=== PATIENT | male | born 1980 | race African-American/Black ===

== ENCOUNTER 2018-06-21 10:06 | Emergency (ER) | payer MEDICARE ==
[2018-06-21] MEDS ORDERED: SODIUM CHLORIDE 0.9% 1,000 ML IV STA (11:02)
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
[2018-06-21 11:51] LABS: Basophils % (A) 0 %; Eosinophils # (A) 0.3 k/uL (0-0.7); Eosinophils % (A) 3 %; HCT 40.3 % (39.0-53.0); HGB 12.4 gm/dL (13.0-17.5); Hypochromasia Moderate; Lymphocytes # (A) 1.4 k/uL (1.0-4.8); Lymphocytes % (A) 19 %; MCH 24.7 pg (25.0-35.0); MCHC 30.7 g/dL (31.0-37.0); MCV 80.6 fL (80.0-100.0); Mean Platelet Volume 7.1; Monocytes # (A) 0.4 k/uL (0-1.0); Monocytes % (A) 5 %; Neutrophils # (A) 5.1 k/uL (1.3-7.7); Neutrophils % (A) 69 %; Platelet Count 261 k/uL (150-450); RBC 5.01 m/uL (4.30-5.90); RDW 15.1 % (11.5-15.5); WBC 7.4 k/uL (3.8-10.6)
[2018-06-21 12:03] LABS: Albumin 3.9 g/dL (3.5-5.0); Calcium 8.9 mg/dL (8.4-10.2); Magnesium 2.3 mg/dL (1.6-2.3); Potassium 3.5 mmol/L (3.5-5.1); Total Bilirubin 0.4 mg/dL (0.2-1.3); Total Protein 7.1 g/dL (6.3-8.2)
[2018-06-21 12:10] LABS: Partial Thromboplastin Time 23.6 sec (22.0-30.0); Prothrombin Time 10.1 sec (9.0-12.0)
[2018-06-21 12:12] LABS: Creatine Kinase 536 U/L (55-170)
--- NOTE | 2018-06-21 12:19 | XR ---
EXAMINATION TYPE: XR chest 2V DATE OF EXAM: 06/21/2018 HISTORY: Chest Pain. REFERENCE: Previous study dated 07/21/2011. FINDINGS: The heart is enlarged. There is vascular congestion and mild edema. There is some fluid in the minor fissure on the right. Pleural spaces are clear. IMPRESSION: PLEASE CORRELATE FOR MILD CONGESTIVE HEART FAILURE.
--- NOTE | 2018-06-21 12:19 | XR ---
EXAMINATION TYPE: XR tibia fibula LT , 4 VIEWS DATE OF EXAM ORDERED: 06/21/2018 HISTORY: Pain. COMPARISON: None. FINDINGS: No fracture, dislocation or other acute osseous abnormality is seen. IMPRESSION: NO ACUTE OSSEOUS LESION.
[2018-06-21 12:26] LABS: Troponin I <0.012 ng/mL (0.000-0.034)
[2018-06-21] MEDS ORDERED: hydrALAZINE HCL 20 MG/ML 1 ML VIAL IVP STA (13:39)
[2018-06-21] MEDS ORDERED: IBUPROFEN 600 MG STARTER PACK 4 TAB BTL PO STA (13:55)
[2018-06-21 14:01] VITALS: RESP 18
[2018-06-21 14:33] VITALS: BP 170/89; PULSE 74; TEMP 98.7
== END 2018-06-21 14:32 | disposition home or self-care (01) ==
LOC: EC 10:06
DX: I11.0 Hypertensive heart disease with heart failure (principal); I50.9 Heart failure, unspecified; Z76.0 Encounter for issue of repeat prescription; M79.604 Pain in right leg; M79.605 Pain in left leg; M79.89 Other specified soft tissue disorders; F17.200 Nicotine dependence, unspecified, uncomplicated; Z88.8 Allergy status to other drugs, medicaments and biological substances
CPT/HCPCS: 36415; 93005; 83880; 80053; 82550; 82553; 83735; 84484; 85025; 85610; 85730; 73590; 71046; 99284; 96374; 96361 ×3; J0360

== ENCOUNTER 2018-07-03 10:04 | Emergency (ER) | payer MEDICARE, OTHER ==
[2018-07-03 10:09] VITALS: BP 160/101; PULSE 89; RESP 18; TEMP 98.2
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
== END 2018-07-03 11:44 | disposition left against medical advice (07) ==
LOC: EC 10:04
DX: M79.605 Pain in left leg (principal); M79.89 Other specified soft tissue disorders; I11.0 Hypertensive heart disease with heart failure; I50.9 Heart failure, unspecified; F17.200 Nicotine dependence, unspecified, uncomplicated; Z88.8 Allergy status to other drugs, medicaments and biological substances; Z53.8 Procedure and treatment not carried out for other reasons
CPT/HCPCS: 99283

== ENCOUNTER 2018-07-10 18:33 | Emergency (ER) | payer MEDICARE, OTHER ==
[2018-07-10 19:31] VITALS: RESP 18
[2018-07-10] MEDS ORDERED: KETOROLAC 30 MG/ML 1 ML VIAL IM STA (19:41)
--- NOTE | 2018-07-10 19:45 | ED ---
Extremity Problem HPI - General Chief complaint: Extremity Problem,Nontraumatic Stated complaint: lt leg pain Time Seen by Provider: 07/10/18 19:34 Source: patient Mode of arrival: wheelchair Limitations: no limitations - History of Present Illness Initial comments: 38-year-old male patient presents to the emergency department today for complaints of left lower leg pain and swelling. Patient states he has had this pain intermittently over the last 3 months. Patient states recently the pain has been getting much worse. Patient states the pain is mainly located in his calf. States that he feels a lot of pressure in the leg like it is going to "burst". Patient states he did take Advil earlier today but it did not help. He denies any fevers or chills with this. Denies any chest pain, shortness of breath, or palpitations. Denies any history of blood clots. Denies any known injury to the leg. He is not currently take any anticoagulant medications. Patient does have an extensive cardiac history including CHF and hypertension. Patient denies any recent rash, abdominal pain, nausea, vomiting, diarrhea, constipation, back pain, numbness, tingling, dizziness, weakness, hematuria, dysuria, urinary urgency, urinary frequency, visual changes, or any other complaints. - Related Data Previous Rx's Medication Instructions Recorded Chlorthalidone [Hygroton] 25 mg PO DAILY #10 tablet 06/21/18 Ibuprofen 800 mg PO TID #20 tablet 06/21/18 Labetalol [Trandate] 300 mg PO BID #10 tablet 06/21/18 Potassium Chloride ER [K-Dur 20] 20 meq PO BID #20 tab 06/21/18 hydrALAZINE HCL [Apresoline] 100 mg PO DAILY #20 tab 06/21/18 Ibuprofen [Motrin] 600 mg PO Q8HR PRN #30 tab 07/10/18 Allergies Allergy/AdvReac Type Severity Reaction Status Date / Time amlodipine [From [facility]] Allergy Anaphylaxis Verified 07/10/18 19:27 lisinopril Allergy Anaphylaxis Verified 07/10/18 19:27 Review of Systems ROS Statement: Those systems with pertinent positive or pertinent negative responses have been documented in the HPI. ROS Other: All systems not noted in ROS Statement are negative. Past Medical History Past Medical History: Heart Failure, Hypertension History of Any Multi-Drug Resistant Organisms: None Reported Past Surgical History: Hernia Repair Past Psychological History: Bipolar Smoking Status: Former smoker Past Alcohol Use History: Occasional Past Drug Use History: Marijuana General Exam Limitations: no limitations General appearance: alert, in no apparent distress, other (This is a well- developed, well-nourished adult male patient in no acute distress. Vital signs upon presentation are temperature 98.8F, pulse 88, respirations 18, blood pressure 185/107, pulse ox 100% on room air.) Eye exam: Present: normal appearance, PERRL, EOMI. Absent: scleral icterus, conjunctival injection, periorbital swelling ENT exam: Present: normal exam, normal oropharynx, mucous membranes moist Respiratory exam: Present: normal lung sounds bilaterally. Absent: respiratory distress, wheezes, rales, rhonchi, stridor Cardiovascular Exam: Present: regular rate, normal rhythm, normal heart sounds. Absent: systolic murmur, diastolic murmur, rubs, gallop, clicks Extremities exam: Present: full ROM, normal capillary refill, calf tenderness ( Left), other (Patient has moderate nonpitting edema to the left lower leg and foot. Pedal pulse and posttibial pulses are 2+ and equal bilaterally. Remainder of skin is pink, warm, and dry. Cap refills less than 3 seconds.). Absent: normal inspection, tenderness, pedal edema, joint swelling Course Vital Signs 07/10/18 19:27 Temperature 98.8 F Pulse Rate 88 Respiratory 18 Rate Blood Pressure 185/107 O2 Sat by Pulse 100 Oximetry Medical Decision Making - Medical Decision Making 38-year-old male patient presented to the emergency department today for evaluation of left calf pain and left lower leg swelling. Physical examination did reveal firm left calf. Patient has full range of motion to both the knee and the foot. Skin was warm and dry. Venous Doppler duplex was negative for any evidence of DVT. X-ray was negative for any acute osseous abnormalities. Did perform a soft tissue ultrasound of the left calf which did show a intramuscular hematoma measuring 8 x 7 cm. I did discuss findings and results with the patient. My attending Dr. Houston was in to evaluate the patient. Patient will be given ibuprofen for pain control and instructed to use Shilo wrap for comfort and support. Instructed to keep the leg elevated. Instructed to follow-up with his primary care physician for monitoring and a recheck in 1-2 days. We did discuss risk of compartment syndrome so if his pain becomes worse or has any changes he is to return immediately. Return parameters discussed in detail. He verbalizes understanding and agreed with this plan. - Radiology Data Radiology results: report reviewed, image reviewed Venous Doppler duplex of the left lower trauma he was obtained. Report was reviewed in its entirety. Impression by Dr. Renteria shows no evidence of deep venous thrombosis. Small popliteal cyst. 4 views of the left tib-fib are obtained. This no fracture or dislocation. There is subcutaneous edema around the lower leg. Ankle joint and knee joint appear intact. Impression by Dr. Renteria shows subcutaneous edema. No fracture seen. Vascular limited ultrasound of the left lower extremity was obtained. Hypoechoic area in the medial calf measuring 8.1 x 3.5 x 7.[address] Renteria shows a large complex elongated mass in the cath is consistent with intramuscular hematoma. Disposition Clinical Impression: Intramuscular hematoma Disposition: HOME SELF-CARE Condition: Good Instructions: Hematoma (ED) Additional Instructions: Keep Shilo wrap in place for compression and support. Take ibuprofen for pain control. Keep leg elevated as much as possible. Return here immediately for any new, worsening, or concerning symptoms. Prescriptions: Ibuprofen [Motrin] 600 mg PO Q8HR PRN #30 tab PRN Reason: Pain Is patient prescribed a controlled substance at d/c from ED?: No Referrals: [facility] [Primary Care Provider] - 1-2 days Time of Disposition: 22:15
--- NOTE | 2018-07-10 20:22 | US ---
EXAMINATION TYPE: US venous doppler duplex LE LT DATE OF EXAM: 07/10/2018 8:09 PM COMPARISON: NONE CLINICAL HISTORY: Pain. Left leg pain SIDE PERFORMED: Left TECHNIQUE: The lower extremity deep venous system is examined utilizing real time linear array sonog meche with graded compression, doppler sonography and color-flow sonography. VESSELS IMAGED: External Iliac Vein (EIV) Common Femoral Vein Deep Femoral Vein Greater Saphenous Vein * Femoral Vein Popliteal Vein Small Saphenous Vein Left Leg: Negative for DVT Fluid pocket seen posterior left knee measuring 2.3 x 1.6 x 1.0 cm. IMPRESSION: No evidence of deep venous thrombosis. Small popliteal cyst.
--- NOTE | 2018-07-10 21:50 | US ---
EXAMINATION TYPE: US extremity nonvasculr ltd LT DATE OF EXAM: 07/10/2018 COMPARISON: NONE CLINICAL HISTORY: Pain. Lt calf pain and hardness. Hypoechoic area medial calf measuring 8.1 x 3.5 x 7.1 cm IMPRESSION: Large complex elongated mass in the calf is consistent with intramuscular hematoma.
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
[2018-07-10 22:48] VITALS: BP 175/98; PULSE 79; TEMP 98.9
== END 2018-07-10 22:48 | disposition home or self-care (01) ==
LOC: EC 18:33
DX: M79.81 Nontraumatic hematoma of soft tissue (principal); M79.662 Pain in left lower leg; Z87.891 Personal history of nicotine dependence; Z88.8 Allergy status to other drugs, medicaments and biological substances
CPT/HCPCS: 99284 ×2; 96372 ×2; 73590; 93971; 76882; J1885

== ENCOUNTER 2018-07-17 03:25 | Emergency (ER) | payer MEDICARE, OTHER ==
[2018-07-17 03:32] VITALS: RESP 18
--- NOTE | 2018-07-17 04:08 | ED ---
General Adult HPI - General Chief complaint: Extremity Problem,Nontraumatic Stated complaint: Swollen leg and foot Time Seen by Provider: 07/17/18 03:36 Source: patient Mode of arrival: ambulatory Limitations: no limitations - History of Present Illness Initial comments: Enrike is a 38-year-old male who presents to the emergency department today for reevaluation of left lower extremity swelling. The patient has been evaluated multiple times in our emergency department and diagnosed with intramuscular hematoma, patient returns today for reevaluation of worsening swelling. Patient reports that he does walk 3-5 miles every day, he has taken 2 pills of Motrin since his previous evaluation, he has not been elevating the foot. He was told by his sister who is a physical therapist that he would improve with walking so he has been trying to walk more than usual. Patient reports that he has noticed that his left shoe seems tight and that his foot is getting swollen so he came back to the ER for evaluation. She denies any other injuries or complaints including fevers, chills, nausea, vomiting, chest tightness or palpitations or any shortness of breath. Patient previously had a workup which was negative for acute DVT Worsening swelling today. - Related Data Previous Rx's Medication Instructions Recorded Chlorthalidone [Hygroton] 25 mg PO DAILY #10 tablet 06/21/18 Ibuprofen 800 mg PO TID #20 tablet 06/21/18 Labetalol [Trandate] 300 mg PO BID #10 tablet 06/21/18 Potassium Chloride ER [K-Dur 20] 20 meq PO BID #20 tab 06/21/18 hydrALAZINE HCL [Apresoline] 100 mg PO DAILY #20 tab 06/21/18 Ibuprofen [Motrin] 600 mg PO Q8HR PRN #30 tab 07/10/18 Allergies Allergy/AdvReac Type Severity Reaction Status Date / Time amlodipine [From [facility]] Allergy Anaphylaxis Verified 07/10/18 19:27 lisinopril Allergy Anaphylaxis Verified 07/10/18 19:27 Review of Systems ROS Statement: Those systems with pertinent positive or pertinent negative responses have been documented in the HPI. ROS Other: All systems not noted in ROS Statement are negative. Past Medical History Past Medical History: Heart Failure, Hypertension History of Any Multi-Drug Resistant Organisms: None Reported Past Surgical History: Hernia Repair Past Psychological History: Bipolar Smoking Status: Former smoker Past Alcohol Use History: Occasional Past Drug Use History: Marijuana General Exam Limitations: no limitations General appearance: alert, in no apparent distress, other (Patient was sleeping comfortably in ER when initially evaluated) Head exam: Present: atraumatic, normocephalic Eye exam: Present: normal appearance, PERRL ENT exam: Present: normal exam Neck exam: Present: normal inspection Respiratory exam: Present: normal lung sounds bilaterally. Absent: respiratory distress Cardiovascular Exam: Present: regular rate, normal rhythm GI/Abdominal exam: Present: soft, other (Obese). Absent: distended Rectal exam: Present: deferred Extremities exam: Present: pedal edema (2+ pitting edema) Back exam: Present: normal inspection Neurological exam: Present: alert, oriented X3 Psychiatric exam: Present: other (child like affect) Skin exam: Present: warm, dry, normal color. Absent: rash Course Vital Signs 07/17/18 07/17/18 03:28 05:38 Temperature 97.4 F L 98.7 F Pulse Rate 84 79 Respiratory 18 18 Rate Blood Pressure 159/88 138/73 O2 Sat by Pulse 100 96 Oximetry Medical Decision Making - Medical Decision Making The patient was seen and evaluated, history was obtained from the patient and review of medical record Edition I did evaluate this patient during his previous ER visit, I did note that today he does have increasing edema Review of previous labs reveal that he did have a mildly elevated CPK Today we'll repeat labs and imaging Repeat CPK is decreasing Repeat venous Doppler again reveals no acute DVT Soft tissue ultrasound does reveal worsening intra-muscular hematoma Symptomatic treatment including rest, ice, compression and elevation were discussed with the patient. Advised the patient to wrap the leg in an Shilo, to decrease his ambulation every day and to follow-up with a primary care physician. Patient will be referred to primary care physician for reevaluation. All questions pertaining to care were answered best my ability the patient was discharged home in stable condition. - Lab Data Result diagrams: 07/17/18 04:30 07/17/18 04:30 Lab Results 07/17/18 07/17/18 07/17/18 Range/Units 04:30 04:30 04:30 WBC 7.3 (3.8-10.6) k/uL RBC 4.41 (4.30-5.90) m/uL Hgb 10.8 L (13.0-17.5) gm/dL Hct 34.9 L (39.0-53.0) % MCV 79.1 L (80.0-100.0) fL MCH 24.4 L (25.0-35.0) pg MCHC 30.8 L (31.0-37.0) g/dL RDW 15.0 (11.5-15.5) % Plt Count 286 (150-450) k/uL Neutrophils % 73 % Lymphocytes % 16 % Monocytes % 5 % Eosinophils % 5 % Basophils % 0 % Neutrophils # 5.3 (1.3-7.7) k/uL Lymphocytes # 1.2 (1.0-4.8) k/uL Monocytes # 0.4 (0-1.0) k/uL Eosinophils # 0.4 (0-0.7) k/uL Basophils # 0.0 (0-0.2) k/uL Hypochromasia Slight Sodium 139 (137-145) mmol/L Potassium 3.6 (3.5-5.1) mmol/L Chloride 103 (98-107) mmol/L Carbon Dioxide 31 H (22-30) mmol/L Anion Gap 5 mmol/L BUN 20 (9-20) mg/dL Creatinine 1.40 H (0.66-1.25) mg/dL Est GFR (CKD-EPI)AfAm 73 (>60 ml/min/1.73 sqM) Est GFR (CKD-EPI)NonAf 64 (>60 ml/min/1.73 sqM) Glucose 95 (74-99) mg/dL Plasma Lactic Acid Darryl 0.6 L (0.7-2.0) mmol/L Calcium 8.8 (8.4-10.2) mg/dL Creatine Kinase 232 H (55-170) U/L Disposition Clinical Impression: Intramuscular hematoma, Lower extremity edema Disposition: HOME SELF-CARE Condition: Good Instructions: Hematoma (ED) Additional Instructions: Apply ice to her leg for 15 minutes and then remove for 15 minutes, keep the leg elevated as often as possible to decrease swelling Is patient prescribed a controlled substance at d/c from ED?: No Referrals: None,Stated [Primary Care Provider] - 1-2 days Eileen Montoya MD [REFERRING] - 1-2 days Time of Disposition: 05:25
[2018-07-17 04:55] LABS: Basophils % (A) 0 %; Eosinophils # (A) 0.4 k/uL (0-0.7); Eosinophils % (A) 5 %; HCT 34.9 % (39.0-53.0); HGB 10.8 gm/dL (13.0-17.5); Hypochromasia Slight; Lymphocytes # (A) 1.2 k/uL (1.0-4.8); Lymphocytes % (A) 16 %; MCH 24.4 pg (25.0-35.0); MCHC 30.8 g/dL (31.0-37.0); MCV 79.1 fL (80.0-100.0); Mean Platelet Volume 7.6; Monocytes # (A) 0.4 k/uL (0-1.0); Monocytes % (A) 5 %; Neutrophils # (A) 5.3 k/uL (1.3-7.7); Neutrophils % (A) 73 %; Platelet Count 286 k/uL (150-450); RBC 4.41 m/uL (4.30-5.90); WBC 7.3 k/uL (3.8-10.6)
[2018-07-17 05:11] LABS: Calcium 8.8 mg/dL (8.4-10.2); Potassium 3.6 mmol/L (3.5-5.1)
--- NOTE | 2018-07-17 05:15 | US ---
EXAMINATION TYPE: US venous doppler duplex LE LT DATE OF EXAM: 07/17/2018 4:39 AM COMPARISON: NONE CLINICAL HISTORY: Pain, edema. Pain and swelling left leg SIDE PERFORMED: TECHNIQUE: The lower extremity deep venous system is examined utilizing real time linear array sonog meche with graded compression, doppler sonography and color-flow sonography. VESSELS IMAGED: External Iliac Vein (EIV) Common Femoral Vein Deep Femoral Vein Greater Saphenous Vein * Femoral Vein Popliteal Vein Small Saphenous Vein * Proximal Calf Veins (* superficial vessels) Left Leg: Negative for DVT No evidence of DVT left leg IMPRESSION: Normal left leg duplex venous sonogram.
--- NOTE | 2018-07-17 05:17 | US ---
EXAMINATION TYPE: US extremity nonvasc complt LT DATE OF EXAM: 07/17/2018 COMPARISON: 07/10/2018 CLINICAL HISTORY: Pain, edema, hematoma. Pain lump in left calf compare to previous exam on 8. Hypoechoic area no blood flow measuring 8.2 x 2.8 x 6.7 cm. Stable in size compared to previous exam . IMPRESSION: Complex oval-shaped mass in the left calf consistent with intramuscular hematoma. This m easures slightly larger than old exam of 07/10/2018.
[2018-07-17 05:39] VITALS: BP 138/73; PULSE 79; TEMP 98.7
== END 2018-07-17 05:39 | disposition home or self-care (01) ==
LOC: EC 03:25
DX: M79.81 Nontraumatic hematoma of soft tissue (principal); R60.0 Localized edema; R79.89 Other specified abnormal findings of blood chemistry; Z87.891 Personal history of nicotine dependence; Z88.8 Allergy status to other drugs, medicaments and biological substances
CPT/HCPCS: 36415; 80048; 82550; 83605; 85025; 99284

== ENCOUNTER 2018-07-20 15:40 | Emergency (ER) | payer MEDICARE, OTHER ==
[2018-07-20 16:03] VITALS: BP 167/92; PULSE 90; RESP 18; TEMP 98.3
--- NOTE | 2018-07-20 16:28 | ED ---
Recheck HPI - General Chief Complaint: Recheck/Abnormal Lab/Rx Stated Complaint: Med refill Time Seen by Provider: 07/20/18 15:49 Source: patient, RN notes reviewed Mode of arrival: ambulatory Limitations: no limitations - History of Present Illness Initial Comments: This is a 38yo male with PMH of CHF, hypertensions and "psychiatric issues", who presents today for CC of "I need my blood pressure medications refilled". Pt states that he has been out of his blood pressure medications of hydralazine 100mg once daily for the past week. Pt was recently seen here for LE edema and hypertension medication refill. Patient denies any symptoms today including recent fever, chills, night sweats, shortness of breath, chest pain, back pain, abdominal pain, nausea or vomiting, numbness or tingling, dysuria or hematuria, constipation or diarrhea, headaches or visual changes, or any other complaints. He does state the he has the same left LE edema that he was seen for on the , however he states it has not changed and that he has an appointment with his doctor on Saturday. Upon arrival pt BP elevated at 167/92. - Related Data Previous Rx's Medication Instructions Recorded Chlorthalidone [Hygroton] 25 mg PO DAILY #10 tablet 06/21/18 Ibuprofen 800 mg PO TID #20 tablet 06/21/18 Labetalol [Trandate] 300 mg PO BID #10 tablet 06/21/18 Potassium Chloride ER [K-Dur 20] 20 meq PO BID #20 tab 06/21/18 hydrALAZINE HCL [Apresoline] 100 mg PO DAILY #20 tab 06/21/18 Ibuprofen [Motrin] 600 mg PO Q8HR PRN #30 tab 07/10/18 hydrALAZINE HCL [Apresoline] 100 mg PO DAILY 7 Days #7 tab 07/20/18 Allergies Allergy/AdvReac Type Severity Reaction Status Date / Time amlodipine [From [facility]] Allergy Anaphylaxis Verified 07/20/18 15:56 lisinopril Allergy Anaphylaxis Verified 07/20/18 15:56 Review of Systems ROS Statement: Those systems with pertinent positive or pertinent negative responses have been documented in the HPI. ROS Other: All systems not noted in ROS Statement are negative. Constitutional: Denies: fever, chills Eyes: Denies: vision change ENT: Denies: hearing loss Respiratory: Denies: cough, dyspnea, wheezes, hemoptysis, stridor Cardiovascular: Reports: edema (left lower extremity edema). Denies: chest pain , palpitations Gastrointestinal: Denies: abdominal pain, nausea, vomiting, diarrhea, constipation Genitourinary: Denies: urgency, dysuria Musculoskeletal: Denies: back pain, joint swelling, arthralgia Skin: Denies: rash, lesions Neurological: Denies: headache, weakness, numbness, paresthesias, confusion, abnormal gait Past Medical History Past Medical History: Heart Failure, Hypertension History of Any Multi-Drug Resistant Organisms: None Reported Past Surgical History: Hernia Repair Past Psychological History: Bipolar Smoking Status: Former smoker Past Alcohol Use History: Occasional Past Drug Use History: Marijuana General Exam - General Exam Comments Initial Comments: General: The patient is awake and alert, in no distress, and does not appear acutely ill. Eye: +3 mm pupils are equal, round and reactive to light, extra-ocular movements are intact. No nystagmus. There is normal conjunctiva bilaterally. No signs of icterus. Ears, nose, mouth and throat: There are moist mucous membranes and no oral lesions. Neck: The neck is supple, there is no tenderness or JVD. Cardiovascular: There is a regular rate and rhythm. No murmur, rub or gallop is appreciated. Respiratory: Lungs are clear to auscultation, respirations are non-labored, breath sounds are equal. No wheezes, stridor, rales, or rhonchi. Musculoskeletal: Normal ROM LE b/l, no tenderness. Strength 5/5. Sensation intact. DP pulses equal bilaterally 2+. Neurological: A&O x 3. CN II-XII intact, There are no obvious motor or sensory deficits. Coordination appears grossly intact. Speech is normal. Skin: Skin is warm and dry and no rashes or lesions are noted. LE edema of the left leg, with thickening of the skin. No pain to palpation of the posterior calf. (-) Homans. Psychiatric: Cooperative, appropriate mood & affect, normal judgment. Limitations: no limitations Course Vital Signs 07/20/18 15:53 Temperature 98.3 F Pulse Rate 90 Respiratory 18 Rate Blood Pressure 167/92 O2 Sat by Pulse 96 Oximetry Medical Decision Making - Medical Decision Making Case discussed with Dr. Geiger, at this time we feel comfortable filling prescription of hydralazine with PCP f/u for further BP management. In addition pt was given cardiology referral for hx of CHF. Pt denies any shortness of breath, dyspnea on exertion, orthopnea stating that he breathes great and walked 5 miles a day without issues. Pt cardiovascular/pulmonary examination unremarkable, no JVD. Pt left LE edema appear to a stasis dermatitis, pt had a ( -) duplex ultrasounds for DVT 3 days prior and was told to f/u with PCP. Pt was requesting referral for new PCP- given referral for Dr. Pradhan. Pt denies any symptoms of EOD, at this time we feel pt is stable for discharge. Disposition Clinical Impression: Medication refill Disposition: HOME SELF-CARE Condition: Good Instructions: Hypertension (ED) Additional Instructions: Please use medication as discussed. Please follow-up with family doctor in the next 2 days for further management of hypertension. Please see network systems operator for CHF evaluation. Please return to emergency room if the symptoms increase or worsen or for any other concerns, as discussed. Prescriptions: hydrALAZINE HCL [Apresoline] 100 mg PO DAILY 7 Days #7 tab Is patient prescribed a controlled substance at d/c from ED?: No Referrals: None,Stated [Primary Care Provider] - 1-2 days Bel Pradhan MD [STAFF PHYSICIAN] - 1-2 days Bipin Cartwright MD [STAFF PHYSICIAN] - 1-2 days Time of Disposition: 16:28
== END 2018-07-20 16:38 | disposition home or self-care (01) ==
LOC: EC 15:40
DX: Z76.0 Encounter for issue of repeat prescription (principal); R60.0 Localized edema; I11.0 Hypertensive heart disease with heart failure; I50.9 Heart failure, unspecified; Z87.891 Personal history of nicotine dependence; Z88.8 Allergy status to other drugs, medicaments and biological substances
CPT/HCPCS: 99281

== ENCOUNTER 2018-07-27 19:36 | Emergency (ER) | payer MEDICARE, OTHER ==
[2018-07-27 19:46] VITALS: BP 189/118; PULSE 98; RESP 16; TEMP 98.9
[2018-07-27] MEDS ORDERED: KETOROLAC 60 MG/2 ML VIAL IM STA (19:55)
--- NOTE | 2018-07-27 19:58 | ED ---
General Adult HPI - General Chief complaint: Extremity Problem,Nontraumatic Stated complaint: Needs Rx renewal Time Seen by Provider: 07/27/18 19:46 Source: patient, RN notes reviewed Mode of arrival: ambulatory Limitations: no limitations - History of Present Illness Initial comments: 38-year-old male presents emergency Department chief complaint of medication refill. Patient states that he needs a refill of his ibuprofen. Patient states that he takes ibuprofen for his leg pain which is chronic in nature has had 6 ER visits for this pain and extensive ultrasound lab work. Patient has a hematoma but has had no evidence of DVT. Patient states that he does not have any money for ibuprofen [id number] he states his insurance covers this. Patient has an appointment with his PCP and Saturday. Patient denies chest pain , headache, dizziness, shortness breath, fever, chills. Patient states that his leg swelling is improving. - Related Data Previous Rx's Medication Instructions Recorded Chlorthalidone [Hygroton] 25 mg PO DAILY #10 tablet 06/21/18 Ibuprofen 800 mg PO TID #20 tablet 06/21/18 Labetalol [Trandate] 300 mg PO BID #10 tablet 06/21/18 Potassium Chloride ER [K-Dur 20] 20 meq PO BID #20 tab 06/21/18 hydrALAZINE HCL [Apresoline] 100 mg PO DAILY #20 tab 06/21/18 hydrALAZINE HCL [Apresoline] 100 mg PO DAILY 7 Days #7 tab 07/20/18 Ibuprofen [Motrin] 600 mg PO Q8HR PRN #30 tab 07/27/18 Allergies Allergy/AdvReac Type Severity Reaction Status Date / Time amlodipine [From [facility]] Allergy Anaphylaxis Verified 07/27/18 19:45 lisinopril Allergy Anaphylaxis Verified 07/27/18 19:45 Review of Systems ROS Statement: Those systems with pertinent positive or pertinent negative responses have been documented in the HPI. ROS Other: All systems not noted in ROS Statement are negative. Past Medical History Past Medical History: Heart Failure, Hypertension History of Any Multi-Drug Resistant Organisms: None Reported Past Surgical History: Hernia Repair Past Psychological History: Bipolar Smoking Status: Former smoker Past Alcohol Use History: Occasional Past Drug Use History: Marijuana General Exam Limitations: no limitations General appearance: alert, in no apparent distress Head exam: Present: atraumatic, normocephalic, normal inspection Respiratory exam: Present: normal lung sounds bilaterally. Absent: respiratory distress, wheezes, rales, rhonchi, stridor Cardiovascular Exam: Present: regular rate, normal rhythm, normal heart sounds. Absent: systolic murmur, diastolic murmur, rubs, gallop, clicks Extremities exam: Present: other (Mild left lower leg swelling. Pulses equal bilaterally) Skin exam: Present: warm, dry, intact, normal color. Absent: rash Course Vital Signs 07/27/18 19:43 Temperature 98.9 F Pulse Rate 98 Respiratory 16 Rate Blood Pressure 189/118 O2 Sat by Pulse 96 Oximetry Medical Decision Making - Medical Decision Making 38-year-old male presented for medication refill. Patient's ibuprofen was refill he has an appointment Saturday for follow-up. Patient's prior ER visits and medical records were thoroughly reviewed. Patient has all shown evidence of hematoma. Patient's symptoms are improving at this time. Patient has normal neurovascular status. Disposition Clinical Impression: Medication refill, Intramuscular hematoma Disposition: HOME SELF-CARE Condition: Stable Instructions: Hematoma (ED) Additional Instructions: Please return to the Emergency Department if symptoms worsen or any other concerns. Prescriptions: Ibuprofen [Motrin] 600 mg PO Q8HR PRN #30 tab PRN Reason: Pain Is patient prescribed a controlled substance at d/c from ED?: No Referrals: None,Stated [Primary Care Provider] - 1-2 days Time of Disposition: 19:58
== END 2018-07-27 20:29 | disposition home or self-care (01) ==
LOC: EC 19:36
DX: Z76.0 Encounter for issue of repeat prescription (principal); M79.81 Nontraumatic hematoma of soft tissue; Z87.891 Personal history of nicotine dependence; Z88.8 Allergy status to other drugs, medicaments and biological substances
CPT/HCPCS: 99282; 96372; J1885

== ENCOUNTER 2018-08-22 06:51 | Emergency (ER) | payer MEDICARE, OTHER ==
[2018-08-22 06:57] VITALS: TEMP 97.9
[2018-08-22] MEDS ORDERED: hydrALAZINE HCL 50 MG TAB PO STA (07:11)
--- NOTE | 2018-08-22 07:12 | ED ---
General Adult HPI - General Chief complaint: Recheck/Abnormal Lab/Rx Stated complaint: High BP Time Seen by Provider: 08/22/18 06:59 Source: patient Mode of arrival: ambulatory Limitations: no limitations - History of Present Illness Initial comments: 38-year-old male presents for evaluation of hypertension. Patient was seen by his primary care physician yesterday, noted to have some elevated blood pressures. He is diagnosed with hypertension and is currently on hydralazine 50 mg. He did not take his medication this morning. He states he was at the gym working out for the past several hours. He denies headache. Denies vision changes. Denies numbness or tingling. Denies focal weakness. Denies chest pain. Denies dyspnea. Denies lower extremity swelling. Denies abdominal pain. Patient feels well, has no complaints. - Related Data Previous Rx's Medication Instructions Recorded Chlorthalidone [Hygroton] 25 mg PO DAILY #10 tablet 06/21/18 Ibuprofen 800 mg PO TID #20 tablet 06/21/18 Labetalol [Trandate] 300 mg PO BID #10 tablet 06/21/18 Potassium Chloride ER [K-Dur 20] 20 meq PO BID #20 tab 06/21/18 hydrALAZINE HCL [Apresoline] 100 mg PO DAILY #20 tab 06/21/18 hydrALAZINE HCL [Apresoline] 100 mg PO DAILY 7 Days #7 tab 07/20/18 Ibuprofen [Motrin] 600 mg PO Q8HR PRN #30 tab 07/27/18 Allergies Allergy/AdvReac Type Severity Reaction Status Date / Time amlodipine [From [facility]] Allergy Anaphylaxis Verified 08/22/18 06:56 lisinopril Allergy Anaphylaxis Verified 08/22/18 06:56 Review of Systems ROS Statement: Those systems with pertinent positive or pertinent negative responses have been documented in the HPI. ROS Other: All systems not noted in ROS Statement are negative. Past Medical History Past Medical History: Heart Failure, Hypertension History of Any Multi-Drug Resistant Organisms: None Reported Past Surgical History: Hernia Repair Past Psychological History: Bipolar Smoking Status: Current some day smoker Past Alcohol Use History: Occasional Past Drug Use History: Marijuana General Exam Limitations: no limitations General appearance: alert, in no apparent distress Head exam: Present: atraumatic, normocephalic Eye exam: Present: normal appearance, PERRL ENT exam: Present: normal exam Neck exam: Present: normal inspection. Absent: tenderness Respiratory exam: Present: normal lung sounds bilaterally. Absent: respiratory distress Cardiovascular Exam: Present: regular rate, normal rhythm GI/Abdominal exam: Present: soft. Absent: distended, tenderness, guarding Extremities exam: Present: normal inspection, full ROM. Absent: pedal edema, calf tenderness Course Vital Signs 08/22/18 08/22/18 06:53 07:36 Temperature 97.9 F Pulse Rate 92 81 Respiratory 20 16 Rate Blood Pressure 184/111 190/103 O2 Sat by Pulse 97 95 Oximetry Medical Decision Making - Medical Decision Making 38-year-old male presenting for evaluation of asymptomatic hypertension, patient states he just wanted his blood pressure checked. He denies any complaints. He does not want laboratory testing, EKG or chest x-ray. He is given a dose of his hydralazine which she had not taken this morning. He will repeat present to his primary care office for repeat blood pressure monitoring. Patient is also instructed on diet and exercise. Disposition Clinical Impression: Asymptomatic hypertension Disposition: HOME SELF-CARE Condition: Good Instructions: Hypertension (ED) Is patient prescribed a controlled substance at d/c from ED?: No Referrals: [facility] [Primary Care Provider] - 1-2 days Lb Hartley MD [STAFF PHYSICIAN] - 1-2 days Time of Disposition: 07:12
[2018-08-22 07:37] VITALS: BP 190/103; PULSE 81; RESP 16
== END 2018-08-22 07:37 | disposition home or self-care (01) ==
LOC: EC 06:51
DX: I11.0 Hypertensive heart disease with heart failure (principal); I50.9 Heart failure, unspecified; F17.200 Nicotine dependence, unspecified, uncomplicated; Z88.8 Allergy status to other drugs, medicaments and biological substances
CPT/HCPCS: 99283

== ENCOUNTER 2019-03-10 11:26 | Emergency (ER) | payer MEDICARE, OTHER ==
[2019-03-10 11:35] VITALS: PULSE 71; RESP 18; TEMP 98.1
[2019-03-10] MEDS ORDERED: hydrALAZINE HCL 20 MG/ML 1 ML VIAL IVP STA (11:48)
[2019-03-10] MEDS ORDERED: MORPHINE SULFATE 2 MG/ML SYRINGE IVP STA (11:48)
[2019-03-10] MEDS ORDERED: cloNIDine HCL 0.1 MG TAB PO STA (12:04)
--- NOTE | 2019-03-10 12:08 | ED ---
Recheck HPI - General Chief Complaint: Recheck/Abnormal Lab/Rx Stated Complaint: Leg pain Time Seen by Provider: 03/10/19 11:32 Source: patient Mode of arrival: ambulatory - History of Present Illness Initial Comments: 38-year-old male past medical history of heart failure, hypertension presenting today for chief complaint of sent by [facility]. Patient states he went to [facility] to obtain psychiatric medications. He states his blood pressure was elevated at that time and he feels it was due to his chronic left leg pain he states as been ongoing for greater than 3 weeks. He states he has a "bad left leg". She denies numbness tingling loss sensation or coolness of the extremity. Patient states he was recently discharged from [facility] for heart failure exacerbation he states at that time he had chest pain and shortness of breath. He states his legs were swollen. He states his legs have gone back to normal and he denies chest pain, shortness of breath. He denies any headache dizziness or lightheadedness, decreased urination or any other symptoms aside from his left anterior leg pain. He states he has not taken his blood pressure medications this morning prior to his appointment as [facility] this is why could be high as well. He refuses any treatment stating I do not want an IV. Pt agreeable to US and XR. Remaining ROS (-), patient denies any recent fever, chills, back pain, abdominal pain, nausea or vomiting, dysuria or hematuria, constipation or diarrhea, visual changes, or any other complaints. Upon arrival patient's amateur appearing well denying direct trauma or injury, falls involving the left leg. - Related Data Previous Rx's Medication Instructions Recorded Chlorthalidone [Hygroton] 25 mg PO DAILY #10 tablet 06/21/18 Ibuprofen 800 mg PO TID #20 tablet 06/21/18 Labetalol [Trandate] 300 mg PO BID #10 tablet 06/21/18 Potassium Chloride ER [K-Dur 20] 20 meq PO BID #20 tab 06/21/18 hydrALAZINE HCL [Apresoline] 100 mg PO DAILY #20 tab 06/21/18 hydrALAZINE HCL [Apresoline] 100 mg PO DAILY 7 Days #7 tab 07/20/18 Ibuprofen [Motrin] 600 mg PO Q8HR PRN #30 tab 07/27/18 Allergies Allergy/AdvReac Type Severity Reaction Status Date / Time amlodipine [From [facility][1]] Allergy Anaphylaxis Verified 08/22/18 06:56 lisinopril Allergy Anaphylaxis Verified 08/22/18 06:56 Review of Systems ROS Statement: Those systems with pertinent positive or pertinent negative responses have been documented in the HPI. ROS Other: All systems not noted in ROS Statement are negative. Past Medical History Past Medical History: Heart Failure, Hypertension History of Any Multi-Drug Resistant Organisms: None Reported Past Surgical History: Hernia Repair Past Psychological History: Bipolar Smoking Status: Current some day smoker Past Alcohol Use History: Occasional Past Drug Use History: Marijuana Course Vital Signs 03/10/19 03/10/19 11:31 12:06 Temperature 98.1 F Pulse Rate 71 Respiratory 18 Rate Blood Pressure 178/116 171/123 O2 Sat by Pulse 97 Oximetry Medical Decision Making - Medical Decision Making After x-ray of left leg patient became upset he stated he did not want any furt her testing he states he will take his blood pressure medications at home. Refused his ultrasound. Patient left AGAINST MEDICAL ADVICE, refusing any further testing. I was notified by nursing staff of patient choice. Patient appears to be of sound mind. Making appropriate eye contact, and speech. Patient left AMA without completion of care. Disposition Clinical Impression: Left against medical advice Disposition: Left Against Medical Advice Condition: Undetermined Is patient prescribed a controlled substance at d/c from ED?: No Referrals: [facility] [Primary Care Provider] - 1-2 days Time of Disposition: 13:06
--- NOTE | 2019-03-10 12:17 | XR ---
EXAMINATION TYPE: XR tibia fibula LT DATE OF EXAM: 03/10/2019 CLINICAL HISTORY: Left knee and lower extremity pain TECHNIQUE: Two views of the left leg are obtained. COMPARISON: 07/10/2018 FINDINGS: There is no acute fracture or dislocation seen in the left tibia or fibula. The left knee and ankle joints appear within normal limits. The overlying soft tissue appears unremarkable. IMPRESSION: There is no acute fracture or dislocation seen in the left tibia or fibula.
[2019-03-10 12:22] VITALS: BP 171/123
[2019-03-10] MEDS ORDERED: MORPHINE SULFATE 2 MG/ML SYRINGE IM STA (12:28)
--- NOTE | 2019-03-11 05:37 | CDI ---
Documentation Clarification OP Dear Hayley YBARRA, PAC Please do addendum to ED report for missing Physical examination. Thank you, Chetna Salmon [employer] Ad[employer] If you have any questions, please contact Information Delivery Analyst at [phone] [facility]
== END 2019-03-10 12:41 | disposition left against medical advice (07) ==
LOC: EC 11:26
DX: M79.605 Pain in left leg (principal); F17.200 Nicotine dependence, unspecified, uncomplicated; Z53.29 Procedure and treatment not carried out because of patient's decision for other reasons; Z88.8 Allergy status to other drugs, medicaments and biological substances
CPT/HCPCS: 99283; 96372; 73590; J2270